=== PATIENT | female | born 1990 | race Two or more races ===

== ENCOUNTER 2024-11-17 07:03 | Emergency (ER) | payer OTHER, SELFPAY ==
--- NOTE | 2024-11-17 07:09 | ED.GENADULT ---
HPI - General Adult General Chief complaint: General Medical Stated complaint: ACCIDENTAL EXTRA INJECTION OF INSULIN, HIGH BS Source: patient and EMS Mode of arrival: EMS Limitations: no limitations History of Present Illness HPI narrative: This is a 34 years old the patient with a history she has a an insulin pump basically she was having low blood sugar reading she called 911. She is feeling well now the sugar actually was in the 300 range per EMS. Patient denies any dizziness any chest pain any short any fever vomiting. She feels well now Onset (ago): hour(s) (4) Radiation: non-radiation Severity: mild Relieving factors: none Exacerbating factors: none Associated symptoms: denies other symptoms Related Data Allergies Allergy/AdvReac Type Severity Reaction Status Date / Time No Known Allergies Allergy Verified 11/17/24 07:17 Review of Systems Constitutional: Constitutional: Reports no additional constitutional complaints ENT: Reports system reviewed and no additional complaints, except as documented [facility] Past Medical History [facility] Narrative: Diabetes type 1 Social History Social History Smoked in Last 30 Days: No Use of substances other than those prescribed or required for medical reasons: No Advance Directives: Yes Advance Directives Information Provided: Yes Advance Directives on File: No Do you have a plan to hurt others: No Plan Patient : No Physical Exam ED Exam Exam: She looks well she is not in distress she is comfortable in the stretcher Vital Signs: Vital Signs - 24 hr 11/17/24 07:14 11/17/24 07:44 11/17/24 10:04 Temperature 98.1 F 98.1 F 98.2 F Pulse Rate 96 96 95 Respiratory Rate 16 16 16 Blood Pressure 146/88 H 146/88 H 142/76 H Pulse Oximetry 98 98 97 Oxygen Delivery Method Room Air Room Air Room Air BMI result Body Mass Index 32.7 Const General: cooperative, healthy appearing and comfortable Nutritional Appearance: well nourished Orientation/consciousness: patient oriented x3 HENMT Head: Yes normal to inspection General nose exam: Normal external nose present Face and sinus: Yes normal facial exam Mouth: Normal oral and palatal mucosa present Neck Neck: Yes normal visual inspection Chest Chest palpation & inspection: normal inspection of the chest Resp Effort & Inspection: normal respiratory effort Auscultation: clear to auscultation bilaterally Cardio Jugular venous distension: no JVD Rate: regular rate Rhythm: regular rhythm GI Inspection: Yes normal to inspection Palpation (GI): Soft to palpation, not firm and nontender Auscultation: normal bowel sounds Skin General skin exam: no rashes or lesions noted and elasticity normal Lesions: no lesions Rashes: no rashes Neuro General: patient oriented x3 Cranial nerves: Yes CN's II-XII intact bilaterally Gait exam (Neuro): Normal gait present Motor exam (neuro): 5/5 motor strength present throughout Course Reevaluation(s) Reevaluation #1: On re-examined asymptomatic repeat blood sugar at 10:07 to 273 she can be discharged home Time: 10:31 Medications Administered Discontinued Medications Generic Name Dose Route Start Last Admin Trade Name Freq PRN Reason Stop Dose Admin Sodium Chloride 1,000 mls @ 999 mls/hr 11/17/24 07:30 11/17/24 09:16 Ns IVCONT 11/17/24 08:30 Infused .Q1H1M AL Infusion Medical Decision Making Medical Decision Making MDM Narrative: This is patient with diabetes brought in by ambulance patient thought that her blood sugar was low based on the reading of her Tyrese. 10:31 blood sugar 273 gap normal bicarb of 22 she can be discharged home Differential Diagnosis Differential Diagnoses: The differential diagnosis associated with the presentation includes Hypoglycemia/hyperglycemia Admission/Observation Consideration of admission/observation: Escalation of care including admission/observation considered Lab Data [facility] Lab Attestation statement: I reviewed the patient's lab results. 11/17/24 07:43 11/17/24 08:53 Labs: Lab Results 11/17/24 11/17/24 11/17/24 Range/Units 07:30 07:43 08:53 WBC 6.1 (4.8-10.8) X10*3/uL RBC 5.07 (4.20-5.50) X10*6/uL Hgb 12.2 (12.0-16.0) g/dl Hct 37.4 (37.0-47.0) % MCV 73.8 L (80.0-98.0) fL MCH 24.1 L (27.0-33.0) pg MCHC 32.6 (31.0-35.0) g/dl RDW 14.0 (11.0-16.0) % Plt Count 320 (160-400) X10*3/uL MPV 10.1 (9.4-12.3) fL Immature Gran % (Auto) 0.2 (0.0-0.4) % Neut % (Auto) 63.7 (45-73) % Lymph % (Auto) 28.3 (20-40) % [place] % (Auto) 6.0 (2-11) % Eos % (Auto) 0.8 (0-4) % Baso % (Auto) 1.0 (0-2) % Lymph # (Auto) 1.7 (1.2-4.9) X10*3/uL [place] # (Auto) 0.4 (0.1-1.2) X10*3/uL Eos # (Auto) 0.1 (0.0-0.4) X10*3/uL Baso # (Auto) 0.1 (0.0-0.2) X10*3/uL Abs Immat Gran (auto) 0.01 (0.00-0.03) X10*3/uL Absolute Neuts (auto) 3.9 (2.0-8.3) x10*3/uL Absolute Nucleated RBC 0.000 (0.0-0.012) X10*3/uL Nucleated RBC % (auto) 0.0 (0.0-0.2) /100WBC Sodium 135 (135-145) mmol/L Potassium 4.6 (3.3-5.1) mmol/L Chloride 110 H (96-108) mmol/L Carbon Dioxide 22 (22-29) mmol/L Anion Gap 8 L (12-20) BUN 10 (9-16) mg/dL Creatinine 0.67 (0.5-1.4) mg/dL Estim Creat Clear Calc 138.5 Estimated GFR > 60 POC Glucose 397 H* (60-115) mg/dL Random Glucose 327 H (60-115) mg/dL Calcium 8.6 (8.4-10.2) mg/dL Total Bilirubin 0.2 (0.0-1.0) mg/dL AST 17 (5-31) U/L ALT 16 (0-31) U/L Alkaline Phosphatase 111 (39-117) U/L Total Protein 7.0 (6.5-8.0) g/dL Albumin 4.0 (3.5-5.0) g/dL Beta HCG, Quant < 2 mIU/mL 11/17/24 Range/Units 10:07 WBC (4.8-10.8) X10*3/uL RBC (4.20-5.50) X10*6/uL Hgb (12.0-16.0) g/dl Hct (37.0-47.0) % MCV (80.0-98.0) fL MCH (27.0-33.0) pg MCHC (31.0-35.0) g/dl RDW (11.0-16.0) % Plt Count (160-400) X10*3/uL MPV (9.4-12.3) fL Immature Gran % (Auto) (0.0-0.4) % Neut % (Auto) (45-73) % Lymph % (Auto) (20-40) % [place] % (Auto) (2-11) % Eos % (Auto) (0-4) % Baso % (Auto) (0-2) % Lymph # (Auto) (1.2-4.9) X10*3/uL [place] # (Auto) (0.1-1.2) X10*3/uL Eos # (Auto) (0.0-0.4) X10*3/uL Baso # (Auto) (0.0-0.2) X10*3/uL Abs Immat Gran (auto) (0.00-0.03) X10*3/uL Absolute Neuts (auto) (2.0-8.3) x10*3/uL Absolute Nucleated RBC (0.0-0.012) X10*3/uL Nucleated RBC % (auto) (0.0-0.2) /100WBC Sodium (135-145) mmol/L Potassium (3.3-5.1) mmol/L Chloride (96-108) mmol/L Carbon Dioxide (22-29) mmol/L Anion Gap (12-20) BUN (9-16) mg/dL Creatinine (0.5-1.4) mg/dL Estim Creat Clear Calc Estimated GFR POC Glucose 273 H (60-115) mg/dL Random Glucose (60-115) mg/dL Calcium (8.4-10.2) mg/dL Total Bilirubin (0.0-1.0) mg/dL AST (5-31) U/L ALT (0-31) U/L Alkaline Phosphatase (39-117) U/L Total Protein (6.5-8.0) g/dL Albumin (3.5-5.0) g/dL Beta HCG, Quant mIU/mL Independent Historian Clinical information obtained from an independent historian. History obtained from or confirmed by: EMS EMS Discharge Plan Discharge Clinical Impression: Hypoglycemia Diabetes Qualifiers: Diabetes mellitus type: type 1 Diabetes mellitus complication status: without complication Qualified Code(s): E10.9 - Type 1 diabetes mellitus without complications Patient Disposition: Home, Self-Care Instructions: Diabetes and Nutrition (ED) Additional Instructions: Follow-up with your primary care physician, your blood sugar was 273 Print Language: Yi
[2024-11-17 07:14] VITALS: BP 146/88; BP 166/88; PULSE 106; PULSE 96; RESP 16; TEMP 36.7; O2SAT 98; BMI 32.7
[2024-11-17 07:44] VITALS: BP 146/88; PULSE 96; RESP 16; TEMP 36.7; O2SAT 98
--- NOTE | 2024-11-17 07:45 | PC.NURSE ---
Patient presents to ED after accidentally giving herself 2.4 units of insulin from insulin pump. Phone mercedes POC LOW, Patient just changed insulin POD last night 11pm ED POC 397 no s/sx of hypo/hyperglycemia VSS and up to date IV 20G RAC currently running NS Provider into see patient, plan of care on going
[2024-11-17 07:55] LABS: MANUAL DIFF FLAG NO
[2024-11-17 07:55] LABS: Glucose, Whole Blood 397 mg/dL (60-115)
[2024-11-17 07:57] LABS: Hematocrit 37.4 % (37.0-47.0); Hemoglobin 12.2 g/dl (12.0-16.0); Imm Gran Abs Auto 0.01 X10*3/uL (0.00-0.03); Imm Gran Pct Auto 0.2 % (0.0-0.4); Lymphocytes Absolute Auto 1.7 X10*3/uL (1.2-4.9); Mean Corpuscular HGB Conc 32.6 g/dl (31.0-35.0); Mean Corpuscular Hemoglobin 24.1 pg (27.0-33.0); Mean Corpuscular Volume 73.8 fL (80.0-98.0); NRBC Abs Auto 0.000 X10*3/uL (0.0-0.012); NRBC Pct Auto 0.0 /100WBC (0.0-0.2); Platelet Count 320 X10*3/uL (160-400); Red Blood Count 5.07 X10*6/uL (4.20-5.50); White Blood Count 6.1 X10*3/uL (4.8-10.8)
[2024-11-17 09:27] LABS: Alanine Aminotransferase 16 U/L (0-31); Albumin Level 4.0 g/dL (3.5-5.0); Alkaline Phosphatase 111 U/L (39-117); Anion Gap 8 (12-20); Aspartate Amino Transferase 17 U/L (5-31); Blood Urea Nitrogen 10 mg/dL (9-16); Calcium 8.6 mg/dL (8.4-10.2); Carbon Dioxide 22 mmol/L (22-29); Chloride 110 mmol/L (96-108); Creatinine Clr Calc Pharmacy 138.5; Estimated Glomerular Filt Rate > 60; Potassium 4.6 mmol/L (3.3-5.1); Sodium 135 mmol/L (135-145); Total Protein 7.0 g/dL (6.5-8.0)
[2024-11-17 10:04] VITALS: BP 142/76; PULSE 95; RESP 16; TEMP 36.8; O2SAT 97
[2024-11-17 10:12] LABS: Glucose, Whole Blood 273 mg/dL (60-115)
[2024-11-17 10:51] VITALS: BP 142/76; PULSE 95; RESP 16; TEMP 36.8; O2SAT 97
== END 2024-11-17 10:58 | disposition home or self-care (01) ==
PROVIDERS: Emergency Provider Emergency Medicine
DX: E10.649 Type 1 diabetes mellitus with hypoglycemia without coma (principal); Z79.4 Long term (current) use of insulin
CPT/HCPCS: 36415; 80053; 82947; 84702; 85025; 96360; 99284